=== PATIENT | female | born 1965 | race Two or more races ===

== ENCOUNTER 2016-09-03 09:08 | Emergency (ER) | payer MEDICAID ==
[~2016-09-03] VITALS: Ht 162.6 cm; Wt 84.4 kg
[2016-09-03 10:40] LABS: microscopic required? YES; urine erythrocyte 1+ (NEGATIVE)
[2016-09-03 10:42] LABS: BASOPHIL % 0.3 % (0-2); PLATELET COUNT 234 x10^3mcL (130-400)
[2016-09-03 10:43] LABS: RED CELL DISTRIBUTION WIDTH 16.9 % (11.5-14.5)
[2016-09-03 11:04] LABS: CALCIUM 8.5 mg/dL (8.5-10.1); CHLORIDE SERUM 106 mmol/L (98-107); CREATININE SERUM 0.6 mg/dL (0.6-1.0); GFR1 > 60 mL/min; GLUCOSE SERUM 91 mg/dL (74-106); POTASSIUM SERUM 3.9 mmol/L (3.5-5.1); SODIUM SERUM 142 mmol/L (136-145)
[2016-09-03 11:08] LABS: ALBUMIN 3.4 g/dL (3.4-5.0); ALKALINE PHOSPHATASE 123 U/L (46-116); ALT/SGPT 25 U/L (14-59); AST/SGOT 20 U/L (15-37); BILIRUBIN TOTAL 0.27 mg/dL (0.20-1.00); TOTAL PROTEIN, SERUM 7.6 g/dL (6.4-8.2)
[2016-09-03 12:31] VITALS: BP 130/74
== END 2016-09-03 12:31 | disposition home or self-care (01) ==
LOC: ED 09:08
PROVIDERS: Emergency Medicine
DX: M79.1 Myalgia (principal); R07.9 Chest pain, unspecified; R21 Rash and other nonspecific skin eruption; R03.0 Elevated blood-pressure reading, without diagnosis of hypertension; Z79.899 Other long term (current) drug therapy
CPT/HCPCS: J0295; J1200; J1885; J2930; J3490; J7030; Q0092

== ENCOUNTER 2016-11-11 12:43 | Emergency (ER) | payer OTHER ==
[~2016-11-11] VITALS: Ht 165.1 cm; Wt 72.6 kg
[2016-11-11 15:26] VITALS: BP 136/91
== END 2016-11-11 15:26 | disposition home or self-care (01) ==
LOC: ED 12:43
DX: S81.811A Laceration without foreign body, right lower leg, initial encounter (principal); X58.XXXA Exposure to other specified factors, initial encounter; Y93.89 Activity, other specified; Y99.8 Other external cause status; Y92.89 Other specified places as the place of occurrence of the external cause
CPT/HCPCS: 90715; J2001

== ENCOUNTER 2016-11-23 18:15 | Emergency (ER) | payer OTHER ==
[2016-11-23 19:59] VITALS: BP 125/81
== END 2016-11-23 19:59 | disposition home or self-care (01) ==
LOC: ED 18:15
DX: S81.812D Laceration without foreign body, left lower leg, subsequent encounter (principal); W26.8XXD Contact with other sharp object(s), not elsewhere classified, subsequent encounter; Y92.89 Other specified places as the place of occurrence of the external cause; Y99.8 Other external cause status